=== PATIENT | female | born 2000 | race African-American/Black ===

== ENCOUNTER 2020-09-13 18:51 | Emergency (ER) | payer SELFPAY ==
[2020-09-13] MEDS ORDERED: Ondansetron ODT 4 MG TAB ONE ×2 (19:39→19:42)
== END 2020-09-13 20:12 | disposition home or self-care (01) ==
LOC: ERS 18:51
DX: R11.2 Nausea with vomiting, unspecified (principal)
CPT/HCPCS: 99283; Q0162

== ENCOUNTER 2020-10-06 22:28 | Emergency (ER) | payer SELFPAY | END 2020-10-07 00:54 | disposition home or self-care (01) | LOC: ERS 22:28 | DX: Z32.00 Encounter for pregnancy test, result unknown (principal) | CPT/HCPCS: 99281 ==